=== PATIENT | male | born 1950 | race Caucasian/White ===

== ENCOUNTER → 2016-04-25 | Outpatient (CLI) | payer OTHER ==
[~2016-04-25] MED LIST: AMLO-110 PO; ASPEC325 PO; ASPI325T39 PO; CALC1TAB27 PO; CALCIUM ZINC MAG PO; CARI350T28 PO; CARV25TA2 PO; CZR50 PO; DILTIAZEM TOP; ESOM20CA PO; FISHOIL PO; FLUT1INH INH; GLC500 PO; GLUCTAB7 PO; IPRA1AER2 INH; MISC1CAP60 PO; MORP60TA6 PO; MRPSR60 PO; MULT-506 PO; NIFE10CA20 PO; RANI300T2 PO; TERA5CAP PO; TYLOTC500 PO; VNTHFA/IN INH; ZNTT/150 PO
--- NOTE | 2016-04-25 08:37 | DIAGNOSTIC IMAGING REPORT ---
(BARIUM SWALLOW) ESOPHAGUS CLINICAL HISTORY: DYSPHAGIAdysphagia COMPARISON STUDY: None FLUOROSCOPY TIME: 0.3 minutes. FINDINGS: Generalized diminished esophageal motility. Narrowing of the gastroesophageal junction with minimal barium across in this region. No evidence for aspiration. IMPRESSION: Essentially and/or functionally obstructive change at the gastroesophageal junction with a tapering of the distal esophagus at that site. No significant emptying of barium into the stomach. No evidence for aspiration. Endoscopic evaluation is indicated. Electronically signed by: Tremayne Pollack M.D. 04/25/2016 8:35 AM Dictated Date/Time: 04/25/2016 8:34 AM
== END | disposition home or self-care (01) ==
LOC: C.RAD 07:54
PROVIDERS: ATTEND Student in an Organized Health Care Education/Training Program
DX: R13.19 Other dysphagia (principal)

== ENCOUNTER 2016-04-29 09:40 | Emergency (ER) | payer OTHER ==
[~2016-04-29] VITALS: Ht 182.9 cm; Wt 154.0 kg
[~2016-04-29 09:40] MED LIST changes: -ASPI325T39 PO; -CALC1TAB27 PO; -ESOM20CA PO; -FLUT1INH INH; -MORP60TA6 PO; -NIFE10CA20 PO; -TYLOTC500 PO; -VNTHFA/IN INH; -ZNTT/150 PO
[2016-04-29 09:55] VITALS: TEMP 37.3; Ht 182.9 cm; Wt 154.0 kg
--- NOTE | 2016-04-29 10:32 | EMERGENCY ROOM VISIT NOTE ---
History Report prepared by Janice: Riley Harris Under the Supervision of: Dr. Khurram Lucas M.D. First contact with patient: 10:02 Chief Complaint: VOMITING Stated Complaint: VOMITING History of Present Illness The patient is a 65 year old male who presents to the Emergency Room with complaints of episodes of vomiting that started around 0430 this morning. He says he has been vomiting clear saliva, and he feels nauseous. He cannot keep saliva down and cannot swallow anything this morning. The patient has had chronic problems with his esophagus, and he states that his sphincter closes off. This problem has been progressively getting worse for the past month, and worsened last night. He had an x-ray 3 days ago, and the next day he saw a food storeroom clerk, who read the x-ray, and recommended that the patient see a GI doctor. The patient says no one has contacted him back yet. He says that for the past few weeks, before dinner time, he takes 4 or 5 shots of liquor, which relaxes his sphincter for a short period of time, and allows him to eat and take his pills. The patient had an endoscopy in 2011. He denies any abdominal pain. Source of History: patient Onset: 0430 this morning Position: other (global - vomting) Quality: other (vomiting clear saliva) Timing: other (episodes) Associated Symptoms: + nausea, No abdominal pain Note: Associated symptoms: Cannot swallow anything this morning. Chronic problems with esophagus (sphincter closes off). Review of Systems See HPI for pertinent positives & negatives. A total of 10 systems reviewed and were otherwise negative. Past Medical & Surgical Medical Problems: (1) Diabetes (2) HTN (hypertension) Family History FHx: cancer Hypertension Social History Smoking Status: Former Smoker Alcohol Use: occasionally Marital Status: Occupation Status: retired Current/Historical Medications Scheduled Amlodipine (Norvasc), 5 MG PO QAM Aspirin (Aspirin), 325 MG PO BID Carisoprodol (Soma), 350 MG PO PRN Carvedilol (Coreg), 25 MG PO BID Fish Oil ([place]-3), 2 CAP PO UD Lqvsewkdpho-Gcodmzarbuv-Ydj C- (Glucosamine Chondroitin), 1 TAB PO BID Losartan Potassium (Cozaar *), 100 MG PO QAM Metformin Hcl (Glucophage *), 500 MG PO BID Misc Natural Products ([place]aw [place]), 1 CAP PO DAILY Morphine Sulfate (Morphine Sulfate ER), 60 MG PO Q12 Multivitamin (Multivitamin), 2 TAB PO DAILY Ranitidine (Zantac), 300 MG PO HS Terazosin (Hytrin), 5 MG PO QPM [Calcium,Zinc,Mag], 2 CAP PO DAILY [Diltiazem Gel], 1 DOSE TOP TID Scheduled PRN Ipratropium-Albuterol (Combivent Respimat), 1 PUFFS INH QID PRN for PRN Allergies Coded Allergies: Sulfa Drugs (Verified Allergy, Severe, SWELLING, 10/25/13) Tetracycline (Verified Allergy, Severe, SWELLING, 10/25/13) PT DOES NOT RECALL Doxycycline (Unverified Allergy, Unknown, RASH, SWELLING LIPS AND EYES, ) Physical Exam Vital Signs Date Time Temp Pulse Resp B/P Pulse Ox O2 Delivery O2 Flow Rate FiO2 04/29/16 12:49 65 20 137/78 92 04/29/16 11:21 67 18 105/61 92 Room Air 04/29/16 11:05 77 04/29/16 11:03 94 Room Air 04/29/16 11:02 70 20 165/94 94 Room Air 04/29/16 09:55 37.3 79 18 168/96 93 Room Air Physical Exam GENERAL: Patient is mildly anxious-appearing, overweight. Keeps spitting up clear saliva. HEENT: No acute trauma, normocephalic atraumatic, mucous membranes moist, no nasal congestion, no scleral icterus. NECK: No stridor, no adenopathy, no meningismus, trachea is midline. LUNGS: No dyspnea. Clear to auscultation and equal bilaterally. No wheeze, no rhonchi. HEART: Regular rate and rhythm. No murmurs, rubs, gallops appreciated. ABDOMEN: Soft, nontender, bowel sounds positive, no masses appreciated, no peritonitis. Old lower abdominal incision scar. BACK: No midline tenderness, no CVA tenderness EXTREMITIES: Normal motion all extremities, no cyanosis, no edema. NEUROLOGIC: Alert and oriented, no acute motor or sensory deficits, no focal weakness, cranial nerves grossly intact. SKIN: No rash, no jaundice, no diaphoresis. Medical Decision & Procedures Laboratory Results 04/29/16 10:50 04/29/16 10:50 Test 04/29/16 10:50 Red Blood Count 4.18 M/uL (4.7-6.1) Mean Corpuscular Volume 98.3 fL (80-100) Mean Corpuscular Hemoglobin 34.0 pg (25-34) Mean Corpuscular Hemoglobin Concent 34.5 g/dl (32-36) RDW Standard Deviation 48.3 fL (36.4-46.3) RDW Coefficient of Variation 13.6 % (11.5-14.5) Mean Platelet Volume 9.7 fL (7.4-10.4) Anion Gap 10.0 mmol/L (3-11) Est Creatinine Clear Calc Drug Dose 84.4 ml/min Estimated GFR () 65.4 Estimated GFR (Non- 56.5 BUN/Creatinine Ratio 23.0 (10-20) Calcium Level 9.3 mg/dl (8.5-10.1) Total Bilirubin 0.6 mg/dl (0.2-1) Aspartate Amino Transf (AST/SGOT) 60 U/L (15-37) Alanine Aminotransferase (ALT/SGPT) 61 U/L (12-78) Alkaline Phosphatase 57 U/L (45-117) Total Protein 7.9 gm/dl (6.4-8.2) Albumin 4.1 gm/dl (3.4-5.0) Globulin 3.8 gm/dl (2.5-4.0) Albumin/Globulin Ratio 1.1 (0.9-2) Laboratory results as reviewed by me. Medications Administered Medications (Trade) Dose Ordered Sig/Gregg Route Start Time Stop Time Status Last Admin Dose Admin Nitroglycerin (Nitrostat Tab) 0.4 mg NOW STAT SL 04/29/16 10:43 04/29/16 10:45 DC 04/29/16 11:02 0.4 MG ED Course 1004: The patient was evaluated in room A11B. A complete history and physical exam was performed. 1043: Ordered Nitrostat Tab 0.4 mg SL. 1043: I discussed the patient with Dr. Jane Kirby. 1126: I reevaluated the patient and he wants to try to drink a bit of water and will go home if he can. 1155: I reevaluated the patient and he wants to go home. He is resting comfortably. The patient verbally expressed understanding and agreement of the treatment plan. The patient will be discharged. Medical Decision 65 yr old male arrives with difficulty swallowing saliva after a few weeks of gradually worsening swallowing dysfunction. No other symptoms. No aspirating. Labs unremarkable. Gastro evaluated patient and want to try outpatient meds which they will send to pharmacy. He was given SLNTG here and able to tolerate small sips. Discussed RTED if worsening or other concerns. GI to set up outpatient endo though I have stressed to patient that if worsening can return at any time. Consults Time Called: 1040 Consulting Physician: Dr. Jane Kirby Returned Call: [phone] I discussed the patient with Dr. Jane Kirby. Impression Primary Impression: Esophageal dysmotility Scribe Attestation The scribe's documentation has been prepared under my direction and personally reviewed by me in its entirety. I confirm that the note above accurately reflects all work, treatment, procedures, and medical decision making performed by me. Departure Information Dispostion Home / Self-Care Referrals Walker Coronado M.D. (PCP) Karlo Lara M.D. Patient Instructions My [facility] Additional Instructions Follow up with GI Specialist as planned. Fill prescription and use per there guidance. Return if vomiting, inability to swallow saliva, pain, fevers, breathing difficulty or other concerns.
[2016-04-29] MEDS ORDERED: NITROGLYCERIN 0.4 MG SL PER TAB CHARGE SL STA (10:43)
[2016-04-29 11:00] LABS: HEMATOCRIT 41.1 % (42-52); MEAN CELL VOLUME 98.3 fL (80-100); MEAN CORPUSCULAR HGB CONC 34.5 g/dl (32-36); MEAN PLATELET VOLUME 9.7 fL (7.4-10.4); PLATELET COUNT 108 K/uL (130-400); RED BLOOD COUNT 4.18 M/uL (4.7-6.1); WHITE BLOOD COUNT 6.01 K/uL (4.8-10.8)
[2016-04-29 11:03] VITALS: O2SAT 94
[2016-04-29 11:19] LABS: ALB/GLOB RATIO 1.1 (0.9-2); CALCIUM 9.3 mg/dl (8.5-10.1); CREATININE 1.3 mg/dl (0.60-1.40); POTASSIUM 4.4 mmol/L (3.5-5.1)
[2016-04-29 12:49] VITALS: BP 137/78; PULSE 65; O2SAT 92
[2016-05-16] MEDS ORDERED: ZNTT/150 PO (09:33)
[2016-05-16] MEDS ORDERED: ASPI325T39 PO (09:33)
[2016-05-16] MEDS ORDERED: NIFE10CA20 PO (09:33)
[2016-05-16] MEDS ORDERED: ESOM20CA PO (09:33)
[2016-05-16] MEDS ORDERED: MORP60TA6 PO (09:33)
[2016-05-16] MEDS ORDERED: TYLOTC500 PO (09:33)
[2016-05-16] MEDS ORDERED: TERA5CAP PO (09:33)
[2016-05-16] MEDS ORDERED: FLUT1INH INH (09:33)
[2016-05-16] MEDS ORDERED: VNTHFA/IN INH (09:33)
[2016-05-16] MEDS ORDERED: CALC1TAB27 PO (09:33)
== END 2016-04-29 12:50 | disposition home or self-care (01) ==
LOC: C.EDB 09:41 → C.EDA 12:50
DX: K22.4 Dyskinesia of esophagus (principal); I10 Essential (primary) hypertension; E11.9 Type 2 diabetes mellitus without complications; Z87.891 Personal history of nicotine dependence

== ENCOUNTER → 2016-05-17 | Day surgery (SDC) | payer OTHER ==
[2016-05-16 09:38] VITALS: Ht 182.9 cm; Wt 144.6 kg
[~2016-05-17] VITALS: Ht 182.9 cm; Wt 144.6 kg
[~2016-05-17] MED LIST changes: -ASPEC325 PO; +ASPI325T39 PO; +CALC1TAB27 PO; -CALCIUM ZINC MAG PO; -DILTIAZEM TOP; +ESOM20CA PO; +ETOMIDATE 2 MG/ML 20 ML VIAL IV ONE; +FLUT1INH INH; -GLUCTAB7 PO; -IPRA1AER2 INH; +LIDOCAINE HCL 2% 2 ML VIAL (20MG/ML) ONE; +MORP60TA6 PO; -MRPSR60 PO; +NIFE10CA20 PO; +PROPOFOL IV EMULSION 10 MG/ML 20 ML VIAL IV ONE; -RANI300T2 PO; +SODIUM CHLORIDE 0.9% 500ML 500 ML IV ONE; +TYLOTC500 PO; +VNTHFA/IN INH; +ZNTT/150 PO
--- NOTE | 2016-05-17 13:50 | Endo History and Physical ---
History & Physical Date of Service: May 17, 2016. Chief Complaint: Dysphagia Referring Physician: Dr Ralph History of Present Illness Probable achalasia Past Medical History Arthritis, Male Genitourinary Prob., Anxiety, Reflux, Hypertension, COPD Past Surgical History Hx Cardiac Surgery: No Hx Internal Defibrillator: No Hx Pacemaker: No Hx Abdominal Surgery: Yes (COLON RESECTION WITH COLOSTOMY AND REVERSAL, APPY) Hx of Implantable Prosthesis: No Hx Post-Op Nausea and Vomiting: No Hx Cancer Surgery: No Hx Thoracic Surgery: No Hx Orthopedic: Yes (RT TKA, LUMBAR FUSION AND DECOMPRESSION X2, LT/RT KNEE SCOPE X2) Hx Urinary Tract Surgery: No Family History Colon CA Social History Smoking Status: Former Smoker Hx Substance Use: Yes (MORPHINE BID) Hx Alcohol Use: Yes (~2 BEERS/NIGHT) Allergies Coded Allergies: Sulfa Drugs (Verified Allergy, Severe, SWELLING, 05/17/16) Tetracycline (Verified Allergy, Severe, SWELLING, 05/17/16) PT DOES NOT RECALL Doxycycline (Unverified Allergy, Unknown, RASH, SWELLING LIPS AND EYES, 05/17/16) Current Medications Reported Home Medications Medications Dose Route/Sig Max Daily Dose Days Date Category Calcium Magnesium & Zinc (Guzdapr-Srzdiypzs-Ufyh) 1 Tab Tab 1 Tab PO BID 05/16/16 Reported Tylenol (Acetaminophen) 500 Mg Tab 1,000 Mg PO BID 05/16/16 Reported Nexium (Esomeprazole Magnesium) 20 Mg Cap 20 Mg PO QAM 05/16/16 Reported Breo Ellipta (Fluticasone Furoate-Vilanterol) 1 Inh Inh 1 Puff INH QAM 05/16/16 Reported Aspirin Ec (Aspirin) 325 Mg Tab 325 Mg PO QAM 05/16/16 Reported Ventolin Hfa (Albuterol) 200 Puffs/04284 Mcg Aers 2-4 Puffs INH Q6H PRN 05/16/16 Reported Procardia (Nifedipine) 10 Mg Cap 10 Mg PO TIDM 05/16/16 Reported Ms Contin (Morphine Sulfate) 60 Mg Tabcr 60 Mg PO Q12 05/16/16 Reported Zantac (Ranitidine HCl) 150 Mg Tab 150 Mg PO BID 05/16/16 Reported [place] (Misc Natural Products) 1 Cap Cap 1 Cap PO LUNCH 10/17/13 Reported Coreg (Carvedilol) 25 Mg Tab 25 Mg PO BID 10/17/13 Reported [place]-3 (Fish Oil) Oil 1 Tab PO LUNCH 08/12/11 Reported Glucophage * (Metformin HCl) 500 Mg Tab 500 Mg PO BID 08/12/11 Reported Multivitamin (Multivitamins) Tab 1 Tab PO BID 03/29/10 Reported Soma (Carisoprodol) 350 Mg Tab 350 Mg PO DAILY PRN 03/29/10 Reported Hytrin (Terazosin HCl) 5 Mg Cap 5 Mg PO HS 03/29/10 Reported Cozaar * (Losartan Potassium) 100 Mg Tab 100 Mg PO QAM 03/29/10 Reported Norvasc (Amlodipine Besylate) 5 Mg Tab 5 Mg PO QAM 03/29/10 Reported Vital Signs Weight (Kilograms): 144.55 Height (Feet): 6 Height (Inches): 0 Date Time Temp Pulse Resp B/P Pulse Ox O2 Delivery O2 Flow Rate FiO2 05/17/16 13:06 37.7 60 20 172/95 94 Room Air Physical Exam General Appearance: WD/WN, no apparent distress Respiratory/Chest: Auscultation: breath sounds normal, no wheezing Cardiovascular: Heart Auscultation: RRR, no murmurs Assessment and Plan EGD today
--- NOTE | 2016-05-17 14:17 | Discharge Instructions ---
Endoscopy Patient Instructions Date / Procedure(s) Performed May 17, 2016. EGD Allergy Information Coded Allergies: Sulfa Drugs (Verified Allergy, Severe, SWELLING, 05/17/16) Tetracycline (Verified Allergy, Severe, SWELLING, 05/17/16) PT DOES NOT RECALL Doxycycline (Unverified Allergy, Unknown, RASH, SWELLING LIPS AND EYES, 05/17/16) Discharge Date / Findings May 17, 2016. Findings consistent with achalasia. Esophageal dilator passed to 54 Fr. Medication Instructions Stopped Medication(s): METAFORMIN PROCARDIA Restart Stopped Medication(s): Restart all medications today. Follow up with Dr. Hall. Provider Instructions Activity Restrictions - No exercising or heavy lifting for 24 hours. - Do not drink alcohol the day of the procedure. - Do not drive a car or operate machinery until the day after the procedure. - Do not make any important decisions or sign important papers in 24 hours after the procedure. Following Day: - Return to full activity which may include returning to work/school. Diet Start your diet with liquids and light foods (jello, soup, juice, toast). Then eat your usual diet if not nauseated. Treatment For Common After Affects For mild abdominal pain, bloating, or excessive gas: - Rest - Eat lightly - Lie on right side Follow-Up Information Follow-up with Dr Ralph as scheduled Anesthesia Information What You Should Know You have had a procedure that required some medicine to reduce anxiety and discomfort. This treatment is called moderate sedation. After receiving the treatment, you may be sleepy, but you will be able to breathe on your own. The effects of the treatment may last for several hours. Follow these instructions along with Activity/Diet recommendations noted above: * Do NOT do anything where dizziness or clumsiness would be dangerous. * Rest quietly at home today, then you can be up and about tomorrow. * Have a responsible person stay with you the rest of today. * You may have had an I.V. today. If so, you may take the dressing off later today. Recommendations Call your doctor if: * Trouble breathing * Continuous vomiting for more than 24 hours * Temperature above 101 degrees * Severe abdominal pain or bloating * Pain not relieved by pain medicine ordered * There is increased drainage or redness from any incision * A large amount of rectal bleeding greater than 2-3 tablespoons. (If you had a polyp/s removed or have hemorrhoids, a small amount of blood - from the rectum is to be expected.) * You have any unanswered questions or concerns. IN THE EVENT OF A SERIOUS EMERGENCY, GO TO THE NEAREST EMERGENCY ROOM Your discharge instructions were prepared by provider Karlo Lara. Patient Instructions Signature Page Gt [place] Patient (or Guardian) Signature/Date: I have read and understand the instructions given to me by my caregivers. Caregiver/RN/Doctor Signature/Date: The above-named patient and/or guardian has received patient instructions on this date. + Original Patient Signature Page (only) stays with chart. Please make copy for patient.
--- NOTE | 2016-05-17 14:23 | Anesthesiology Progress Note ---
Anesthesia Post Op Note Date & Time May 17, 2016 at 14:23 Vital Signs Pain Intensity: 0 Vital Signs Past 12 Hours Date Time Temp Pulse Resp B/P Pulse Ox O2 Delivery O2 Flow Rate FiO2 05/17/16 14:15 37.7 68 20 150/79 95 Room Air 05/17/16 13:06 37.7 60 20 172/95 94 Room Air Notes Mental Status: alert / awake / arousable, participated in evaluation Pt Amnestic to Procedure: Yes Nausea / Vomiting: adequately controlled Pain: adequately controlled Airway Patency, RR, SpO2: stable & adequate BP & HR: stable & adequate Hydration State: stable & adequate Anesthetic Complications: no major complications apparent
[2016-05-17 14:45] VITALS: BP 156/73; PULSE 60; O2SAT 94
--- NOTE | 2016-05-18 00:45 | GI REPORT ---
Procedure Date: 05/17/2016 1:38 PM Procedure: Upper GI endoscopy Indications: Dysphagia, Suspected achalasia Medicines: Monitored Anesthesia Care Complications: No immediate complications. Estimated blood loss: None. Estimated Blood Loss: Estimated blood loss: none. Procedure: Pre-Anesthesia Assessment: - Prior to the procedure, a History and Physical was performed, and patient medications, allergies and sensitivities were reviewed. The patient's tolerance of previous anesthesia was reviewed. - ASA Grade Assessment: III - A patient with severe systemic disease. After obtaining informed consent, the endoscope was passed under direct vision. Throughout the procedure, the patient's blood pressure, pulse, and oxygen saturations were monitored continuously. The scope was introduced through the mouth, and advanced to the third part of duodenum. The upper GI endoscopy was accomplished with ease. The patient tolerated the procedure well. Findings: Pseudoexudate was found in the entire esophagus. A hypertonic lower esophageal sphincter was found. There was moderate resistance to endoscope advancement into the stomach. The Z-line was regular at 44 cm from the incisors. The gastroesophageal junction and cardia were normal on retroflexed view. A guidewire was placed and the scope was withdrawn. Dilation was performed with an Belgian dilator with mild resistance at 54 Fr. Biopsies were taken from the GE junction with a cold forceps for histology. The entire examined stomach was normal. Biopsies were taken with a cold forceps for Helicobacter pylori testing. The examined duodenum was normal. Impression: - Pseudoexudate in the esophagus. - The esophageal examination was consistent with achalasia. Dilated to 54 Fr. GE junction biopsied. - Normal stomach. Biopsied. - Normal examined duodenum. Recommendation: - Await pathology results. - Discharge patient to home (with escort). - Await esophageal motility results - Continue nifedipine ac - Followup with Dr. Hall and Dr. De Leon for consideration for POEM. Karlo Lara M.D. Karlo Lara MD 05/17/2016 2:15:44 PM This report has been signed electronically. Note Initiated On: 05/17/2016 1:38 PM I attest to the content of the Intraoperative Record and orders documented therein, exceptions below
== END | disposition home or self-care (01) ==
LOC: C.GI 12:18
PROVIDERS: ATTEND Internal Medicine Gastroenterology
DX: K29.50 Unspecified chronic gastritis without bleeding (principal); R13.10 Dysphagia, unspecified; K22.8 Other specified diseases of esophagus; I10 Essential (primary) hypertension; K21.9 Gastro-esophageal reflux disease without esophagitis; J44.9 Chronic obstructive pulmonary disease, unspecified; Z87.891 Personal history of nicotine dependence; Z80.0 Family history of malignant neoplasm of digestive organs; E11.9 Type 2 diabetes mellitus without complications; Z79.4 Long term (current) use of insulin; G47.33 Obstructive sleep apnea (adult) (pediatric)

== ENCOUNTER → 2017-07-06 | Day surgery (SDC) | payer OTHER ==
[2017-06-29 15:06] VITALS: Ht 182.9 cm; Wt 132.7 kg
[~2017-07-06] VITALS: Ht 182.9 cm; Wt 132.7 kg
[~2017-07-06] MED LIST changes: -CARI350T28 PO; -CZR50 PO; +DOCU-94 PO; -ETOMIDATE 2 MG/ML 20 ML VIAL IV ONE; +EpHEDrine SULFATE 50MG/5ML SYR ONE; -FISHOIL PO; +GLC/500 PO; -GLC500 PO; +HYG/25 PO; +KETAMINE HCL INJ 50 MG/ML 10 ML VIAL ONE; +LOSA1TAB38 PO; -MISC1CAP60 PO; -MORP60TA6 PO; +MORP60TA69 PO; -NIFE10CA20 PO; +OMEG10007 PO; +RANI150T85 PO; -SODIUM CHLORIDE 0.9% 500ML 500 ML IV ONE; -ZNTT/150 PO
[2017-07-06 10:32] VITALS: TEMP 37.2
--- NOTE | 2017-07-06 10:48 | Endo History and Physical ---
History & Physical Date of Service: Jul 06, 2017. Chief Complaint: Screening Referring Physician: Dr. Walker Ralph History of Present Illness screening Past Medical History Arthritis, Male Genitourinary Prob., Anxiety, Reflux, Hypertension, COPD Past Surgical History Hx Cardiac Surgery: No Hx Internal Defibrillator: No Hx Pacemaker: No Hx Abdominal Surgery: Yes (COLON RESECTION WITH COLOSTOMY AND REVERSAL, APPY) Hx of Implantable Prosthesis: No Hx Post-Op Nausea and Vomiting: No Hx Cancer Surgery: Yes (SKIN LESION REMOVED) Hx Thoracic Surgery: No Hx Orthopedic: Yes (RT TKA, LUMBAR FUSION AND DECOMPRESSION X2, LT/RT KNEE SCOPE X2) Hx Urinary Tract Surgery: No Family History Colon CA Social History Smoking Status: Former Smoker Hx Substance Use: Yes (MORPHINE BID) Hx Alcohol Use: Yes (~2 BEERS/NIGHT) Allergies Coded Allergies: Sulfa Drugs (Verified Allergy, Severe, SWELLING, 06/29/17) Tetracycline (Verified Allergy, Severe, SWELLING, 06/29/17) PT DOES NOT RECALL Doxycycline (Verified Allergy, Unknown, RASH, SWELLING LIPS AND EYES, 07/06) Current Medications Reported Home Medications Medications Dose Route/Sig Max Daily Dose Days Date Category Ms Contin (Morphine Sulfate) 60 Mg Tab 60 Mg PO Q12 06/29/17 Reported Glucophage (Metformin Hcl) 500 Mg Tab 500 Mg PO BID 06/29/17 Reported Cozaar (Losartan Potassium) 100 Mg Tab 1 Tab PO QAM 30 06/29/17 Reported [place]-3 (Fish Oil) 1 Ea Cap 1 Cap PO QDL 06/29/17 Reported [place] (Docusate Sodium) 100 Mg Cap 1 Cap PO DAILY 15 06/29/17 Reported [place] (Chlorthalidone) 25 Mg Tab 1 Tab PO DAILY 30 06/29/17 Reported Calcium Magnesium & Zinc (Fgxprol-Bjxxfrcky-Fkch) 1 Tab Tab 1 Tab PO BID 05/16/16 Reported Nexium (Esomeprazole Magnesium) 20 Mg Cap 20 Mg PO BID 05/16/16 Reported Breo Ellipta (Fluticasone Furoate-Vilanterol) 1 Inh Inh 1 Puff INH QAM 05/16/16 Reported Aspirin Ec (Aspirin) 325 Mg Tab 325 Mg PO QAM 05/16/16 Reported Ventolin Hfa (Albuterol) 200 Puffs/56203 Mcg Aers 2-4 Puffs INH Q6H PRN 05/16/16 Reported Zantac (Ranitidine HCl) 150 Mg Tab 150 Mg PO QID 05/16/16 Reported Coreg (Carvedilol) 25 Mg Tab 25 Mg PO BID 10/17/13 Reported Multivitamin (Multivitamins) Tab 1 Tab PO BID 03/29/10 Reported Hytrin (Terazosin HCl) 5 Mg Cap 5 Mg PO HS 03/29/10 Reported Norvasc (Amlodipine Besylate) 5 Mg Tab 10 Mg PO QAM 03/29/10 Reported Vital Signs Weight (Kilograms): 132.73 Height (Feet): 6 Height (Inches): 0 Date Time Temp Pulse Resp B/P (MAP) Pulse Ox O2 Delivery O2 Flow Rate FiO2 07/06/17 10:32 37.2 65 18 157/91 (113) 95 Room Air Physical Exam General Appearance: no apparent distress Respiratory/Chest: Auscultation: breath sounds normal Cardiovascular: Heart Auscultation: RRR Abdomen: Inspection & Palpation: soft Assessment and Plan screening cscopy
--- NOTE | 2017-07-06 11:30 | Discharge Instructions ---
Endoscopy Patient Instructions Date / Procedure(s) Performed Jul 06, 2017. Colonoscopy Allergy Information Coded Allergies: Sulfa Drugs (Verified Allergy, Severe, SWELLING, 06/29/17) Tetracycline (Verified Allergy, Severe, SWELLING, 06/29/17) PT DOES NOT RECALL Doxycycline (Verified Allergy, Unknown, RASH, SWELLING LIPS AND EYES, 07/06) Discharge Date / Findings Jul 06, 2017. Colon polyps. Unremarkable sigmoid anastamosis. Fair prep. Medication Instructions Stopped Medication(s): Metformin and Aspirin was held. Resume all stopped medication. Provider Instructions Activity Restrictions - No exercising or heavy lifting for 24 hours. - Do not drink alcohol the day of the procedure. - Do not drive a car or operate machinery until the day after the procedure. - Do not make any important decisions or sign important papers in 24 hours after the procedure. Following Day: - Return to full activity which may include returning to work/school. Diet Start your diet with liquids and light foods (jello, soup, juice, toast). Then eat your usual diet if not nauseated. Treatment For Common After Affects For mild abdominal pain, bloating, or excessive gas: - Rest - Eat lightly - Lie on right side Follow-Up Information Follow-up with Dr. Walker Ralph as scheduled Anesthesia Information What You Should Know You have had a procedure that required some medicine to reduce anxiety and discomfort. This treatment is called moderate sedation. After receiving the treatment, you may be sleepy, but you will be able to breathe on your own. The effects of the treatment may last for several hours. Follow these instructions along with Activity/Diet recommendations noted above: * Do NOT do anything where dizziness or clumsiness would be dangerous. * Rest quietly at home today, then you can be up and about tomorrow. * Have a responsible person stay with you the rest of today. * You may have had an I.V. today. If so, you may take the dressing off later today. Recommendations Call your doctor if: * Trouble breathing * Continuous vomiting for more than 24 hours * Temperature above 101 degrees * Severe abdominal pain or bloating * Pain not relieved by pain medicine ordered * There is increased drainage or redness from any incision * A large amount of rectal bleeding greater than 2-3 tablespoons. (If you had a polyp/s removed or have hemorrhoids, a small amount of blood - from the rectum is to be expected.) * You have any unanswered questions or concerns. IN THE EVENT OF A SERIOUS EMERGENCY, GO TO THE NEAREST EMERGENCY ROOM Your discharge instructions were prepared by provider Brock Shore. Patient Instructions Signature Page Gt [place] Patient (or Guardian) Signature/Date: I have read and understand the instructions given to me by my caregivers. Caregiver/RN/Doctor Signature/Date: The above-named patient and/or guardian has received patient instructions on this date. + Original Patient Signature Page (only) stays with chart. Please make copy for patient.
--- NOTE | 2017-07-06 11:38 | GI REPORT ---
Patient Name: Gt Pete Procedure Date: 07/06/2017 10:40 AM Date of : 1950 Admit Type: Outpatient Age: 66 Gender: Male Attending MD: Brock Adames MD Procedure: Colonoscopy Providers: Brock Adames MD Referring MD: Walker Coronado Indications: Screening for colorectal malignant neoplasm Medicines: See the Anesthesia note for documentation of the administered medications Complications: No immediate complications. Estimated Blood Loss: Estimated blood loss: none. Procedure: Pre-Anesthesia Assessment: - ASA Grade Assessment: III - A patient with severe systemic disease. After I obtained informed consent, the scope was passed under direct vision. Throughout the procedure, the patient's blood pressure, pulse, and oxygen saturations were monitored continuously. The Scope was introduced through the anus and advanced to the terminal ileum. The colonoscopy was performed without difficulty. The patient tolerated the procedure well. The quality of the bowel preparation was fair. Findings: The perianal and digital rectal examinations were normal. There was an unremarkable left sided end to end anastamosis. A 5 mm polyp was found in the transverse colon. The polyp was sessile. The polyp was removed with a cold snare. Resection and retrieval were complete. Two sessile polyps were found in the cecum. The polyps were 1 to 2 mm in size. These polyps were removed with a cold snare. Resection and retrieval were complete. Hemorrhoids on retroflexion. The exam was otherwise without abnormality, but was limited by prep quality. Impression: - Preparation of the colon was fair. - One 5 mm polyp in the transverse colon, removed with a cold snare. Resected and retrieved. - Two 1 to 2 mm polyps in the cecum, removed with a cold snare. Resected and retrieved. - Hemorrhoids. - Left sided end to end anastamosis. Recommendation: - Discharge pt home. - Repeat colonoscopy in 2 years given polyps, prep quality. Brock Adames M.D. Brock Adames MD 07/06/2017 11:38:14 AM This report has been signed electronically. Note Initiated On: 07/06/2017 10:40 AM Number of Addenda: 0 I attest to the content of the Intraoperative Record and orders documented therein, exceptions below {[id number]}
--- NOTE | 2017-07-06 11:54 | Anesthesiology Progress Note ---
Anesthesia Post Op Note Date & Time Jul 06, 2017 at 11:54 Vital Signs Pain Intensity: 0 Vital Signs Past 12 Hours Date Time Temp Pulse Resp B/P (MAP) Pulse Ox O2 Delivery O2 Flow Rate FiO2 07/06/17 11:43 72 18 133/75 (94) 94 Room Air 07/06/17 11:28 70 18 114/70 (85) 94 Room Air 07/06/17 10:32 37.2 65 18 157/91 (113) 95 Room Air Notes Mental Status: alert / awake / arousable, participated in evaluation Pt Amnestic to Procedure: Yes Nausea / Vomiting: adequately controlled Pain: adequately controlled Airway Patency, RR, SpO2: stable & adequate BP & HR: stable & adequate Hydration State: stable & adequate Anesthetic Complications: no major complications apparent
[2017-07-06 11:59] VITALS: BP 141/81; PULSE 62; O2SAT 92
== END | disposition home or self-care (01) ==
LOC: C.GI 09:52
PROVIDERS: ATTEND Internal Medicine Gastroenterology
DX: Z12.11 Encounter for screening for malignant neoplasm of colon (principal); D12.3 Benign neoplasm of transverse colon; D12.0 Benign neoplasm of cecum; K64.8 Other hemorrhoids; E11.9 Type 2 diabetes mellitus without complications; M48.061 Spinal stenosis, lumbar region without neurogenic claudication; M19.90 Unspecified osteoarthritis, unspecified site; F41.9 Anxiety disorder, unspecified; E66.9 Obesity, unspecified; G47.33 Obstructive sleep apnea (adult) (pediatric); K21.9 Gastro-esophageal reflux disease without esophagitis; I10 Essential (primary) hypertension; J44.9 Chronic obstructive pulmonary disease, unspecified; Z80.0 Family history of malignant neoplasm of digestive organs; Z87.891 Personal history of nicotine dependence; Z90.49 Acquired absence of other specified parts of digestive tract; Z88.2 Allergy status to sulfonamides; Z88.1 Allergy status to other antibiotic agents; Z79.82 Long term (current) use of aspirin; Z79.899 Other long term (current) drug therapy; Z79.84 Long term (current) use of oral hypoglycemic drugs

== ENCOUNTER → 2017-07-17 | Outpatient (CLI) | payer OTHER ==
[~2017-07-17] MED LIST changes: -EpHEDrine SULFATE 50MG/5ML SYR ONE; -KETAMINE HCL INJ 50 MG/ML 10 ML VIAL ONE; -LIDOCAINE HCL 2% 2 ML VIAL (20MG/ML) ONE; -PROPOFOL IV EMULSION 10 MG/ML 20 ML VIAL IV ONE; -TYLOTC500 PO
--- NOTE | 2017-07-17 12:26 | DIAGNOSTIC IMAGING REPORT ---
GI SERIES W/O KUB CLINICAL HISTORY: VOMITING achalasia COMPARISON STUDY: Barium swallow dated 04/25/2016 FLUOROSCOPY TIME: 3.2 minutes. NUMBER OF FLUOROSCOPIC IMAGES: 26 FINDINGS: The patient swallowed effervescent granules and barium. There is disordered esophageal motility. There is minor irregular narrowing of the esophagogastric junction, likely secondary to the patient's history of achalasia and achalasia surgery. The stomach was not well-distended. No gastric masses were evident. There is no gastric outlet obstruction. No duodenal bulb ulcers were visualized. The ligament Treitz is located in the normal anatomic position. There is a subtle mass impression transverse duodenum, likely extrinsic. While nonspecific, this may simply be secondary to adjacent colon. IMPRESSION: 1. Disordered esophageal motility 2. Mild irregular narrowing of the esophagogastric junction, likely secondary to the patient's history of achalasia and achalasia surgery. 3. No gastric masses identified. No evidence of gastric outlet obstruction. Electronically signed by: Melchor Figueroa M.D. 07/17/2017 12:25 PM Dictated Date/Time: 07/17/2017 12:20 PM
== END | disposition home or self-care (01) ==
LOC: C.RAD 11:14
PROVIDERS: ATTEND Surgery
DX: K22.4 Dyskinesia of esophagus (principal); R11.10 Vomiting, unspecified